=== PATIENT | male | born 1960 | race African-American/Black ===

== ENCOUNTER 2022-12-10 04:21 | Day surgery (SDC) | payer OTHER ==
[2022-12-06 14:02] VITALS: BMI 297.9
[2022-12-10] MEDS ORDERED: SUCCINYLCHOLINE CHLORIDE 200 MG/10 ML SYRINGE ONE (13:22)
[2022-12-10] MEDS ORDERED: PROPOFOL 20 ML ONE ×2 (13:22→13:59)
[2022-12-10] MEDS ORDERED: MIDAZOLAM HCL 2 MG/2 ML SINGLE DOSE VIAL ONE (14:47)
[2022-12-10] MEDS ORDERED: ceFAZolin SODIUM 1 GM VIAL IVPB ONE (15:01)
[2022-12-10] MEDS ORDERED: ceFAZolin SODIUM 1 GM VIAL ONE (15:01)
[2022-12-10] MEDS ORDERED: DEXAMETHASONE SOD PHOSPHATE 4 MG/1 ML VIAL ONE (15:10)
[2022-12-10] MEDS ORDERED: ACETAMINOPHEN INJECTION 100 ML IVPB ONE (15:29)
[2022-12-10] MEDS ORDERED: KETOROLAC TROMETHAMINE 30 MG/1 ML VIAL ONE (15:29)
[2022-12-10] MEDS ORDERED: ONDANSETRON 4 MG/2 ML VIAL ONE (15:37)
[2022-12-10] MEDS ORDERED: ONDANSETRON 4 MG/2 ML VIAL IVPUSH PRN (16:24)
[2022-12-10] MEDS ORDERED: oxyCODONE HCL 5 MG TABLET PO PRN (16:24)
[2022-12-10] MEDS ORDERED: LACTATED RINGERS SOLUTION 1,000 ML IV SCH (16:30)
[2022-12-10] MEDS ORDERED: oxyCODONE HCL 5 MG TABLET ONE (18:10)
[2022-12-10 18:30] VITALS: RESP 18
[2022-12-10 19:33] VITALS: BP 142/89; PULSE 77; TEMP 97.8
== END 2022-12-10 19:10 | disposition home or self-care (01) ==
LOC: JASU-SURG 04:21
PROVIDERS: ATTEND Urology
PROC: 0V503ZZ Destruction of Prostate, Percutaneous Approach (ICD-10-PCS; principal; 2022-12-10 13:30)
DX: C61 Malignant neoplasm of prostate (principal)
CPT/HCPCS: 55873; C2618; 94760

== ENCOUNTER 2024-06-18 04:21 | Day surgery (SDC) | payer OTHER ==
[2024-06-14 13:45] VITALS: BMI 25.5
[2024-06-18] MEDS ORDERED: MIDAZOLAM HCL 2 MG/2 ML SINGLE DOSE VIAL ONE (10:29)
[2024-06-18] MEDS ORDERED: DEXAMETHASONE SOD PHOSPHATE 4 MG/1 ML VIAL ONE (10:29)
[2024-06-18] MEDS ORDERED: LIDOCAINE HCL/PF 2% SDV 5ML VIAL ONE (10:29)
[2024-06-18] MEDS ORDERED: SUGAMMADEX SODIUM 200 MG/2 ML VIAL ONE (10:29)
[2024-06-18] MEDS ORDERED: ROCURONIUM BROMIDE 50 MG/5 ML SYRINGE ONE ×2 (10:29→11:31)
[2024-06-18] MEDS ORDERED: ONDANSETRON 4 MG/2 ML VIAL ONE ×2 (10:29→13:26)
[2024-06-18] MEDS ORDERED: PROPOFOL 20 ML ONE (10:29)
[2024-06-18] MEDS ORDERED: SEVOFLURANE 250 ML BTL ONE (10:30)
[2024-06-18] MEDS: ONDANSETRON 4 MG/2 ML VIAL IVPUSH PRN (13:27)
[2024-06-18] MEDS: LACTATED RINGERS SOLUTION 1,000 ML IV SCH (14:10)
[2024-06-18] MEDS ORDERED: oxyCODONE HCL 5 MG TABLET ONE (14:17)
[2024-06-18] MEDS: oxyCODONE HCL 5 MG TABLET PO PRN (14:19)
[2024-06-18 14:23] VITALS: RESP 16
[2024-06-18 15:30] VITALS: BP 124/70; PULSE 72; TEMP 97
== END 2024-06-18 15:41 | disposition home or self-care (01) ==
LOC: JASU-SURG 04:21
PROVIDERS: ATTEND Urology
PROC: 0V507ZZ Destruction of Prostate, Via Natural or Artificial Opening (ICD-10-PCS; principal; 2024-06-18 10:00)
DX: C61 Malignant neoplasm of prostate (principal)
CPT/HCPCS: 94760